=== PATIENT | female | born 1980 | race Caucasian/White ===

== ENCOUNTER 2021-06-23 08:15 | Inpatient (IN) | payer MEDICAID ==
[2021-06-29] MEDS ORDERED: Gabapentin 300 MG Cap PO ONE (06:00)
[2021-06-29] MEDS ORDERED: Acetaminophen 500 MG Tab PO ONE (06:00)
[2021-06-29] MEDS ORDERED: Scopolamine 1.5 MG Transdermal Patch TOP ONE (06:00)
[2021-06-29] MEDS ORDERED: Celecoxib 200 MG Cap PO ONE (06:00)
[2021-06-29 06:31] LABS: CORONAVIRUS COVID-19 NAA NEGATIVE (NEGATIVE)
[2021-06-29] MEDS ORDERED: cefOXitin 2 GM Vial ONE (06:32)
[2021-06-29] MEDS ORDERED: Dextrose 5%-Lactated Ringers 1,000 ML IV SCH (06:45)
[2021-06-29] MEDS ORDERED: Neostigmine Methylsulfate 1 MG/ML 5 ML Syringe IV ONE (06:56)
[2021-06-29] MEDS ORDERED: fentaNYL 250 MCG/5 ML SDV IV ONE ×2 (06:56→07:46)
[2021-06-29] MEDS ORDERED: Dexamethasone 4 MG/ML SDV IV ONE (06:56)
[2021-06-29] MEDS ORDERED: Succinylcholine 200 MG/10 ML MDV IV ONE (06:56)
[2021-06-29] MEDS ORDERED: Propofol 200 MG/20 ML SDV IV ONE (06:56)
[2021-06-29] MEDS ORDERED: Rocuronium 50 MG/5 ML Vial IV ONE (06:56)
[2021-06-29] MEDS ORDERED: Labetalol 20 MG/4 ML Syringe IV ONE (06:56)
[2021-06-29] MEDS ORDERED: Ondansetron 4 MG/2 ML SDV IVPUSH ONE (06:56)
[2021-06-29] MEDS ORDERED: Glycopyrrolate 0.2 MG/ML 2 ML SDV IV ONE (06:56)
[2021-06-29] MEDS ORDERED: Lactated Ringers 1,000 ML IV ONE (06:59)
[2021-06-29] MEDS ORDERED: cefOXitin 2 GM in Sodium Chloride 0.9% 50 ML IV ONE (07:00)
[2021-06-29] MEDS ORDERED: Ketamine 16 MG in Sodium Chloride 0.9% 19.84 ML IV SCH (07:30)
[2021-06-29] MEDS ORDERED: Ketamine 500 MG/5 ML MDV IV SCH (07:30)
[2021-06-29] MEDS ORDERED: hydrOXYzine HCL 100 MG/2 ML SDV IM ONE (08:55)
[2021-06-29 09:26] LABS: HEMOGLOBIN A1C 6.4 % (4.5-6.2)
[2021-06-29] MEDS: HYDROmorphone 1 MG/ML Syringe IV PRN ×2 (09:56→12:26)
[2021-06-29] MEDS ORDERED: Labetalol 20 MG/4 ML Syringe IVPUSH PRN (10:00)
[2021-06-29] MEDS ORDERED: Calcium Gluconate 10% 1 GM/10 ML SDV IVPUSH PRN (10:00)
[2021-06-29] MEDS ORDERED: Metoclopramide 10 MG/2 ML SDV IVPUSH PRN (10:00)
[2021-06-29] MEDS ORDERED: HYDROmorphone 0.5 MG/0.5 ML Syringe IVPUSH PRN (10:00)
[2021-06-29] MEDS ORDERED: traMADol 50 MG Tab PO PRN (10:00)
[2021-06-29] MEDS ORDERED: diphenhydrAMINE 50 MG/ML SDV IVPUSH PRN (10:00)
[2021-06-29] MEDS ORDERED: Cyclobenzaprine 10 MG Tab PO PRN (10:00)
[2021-06-29] MEDS ORDERED: Ondansetron 4 MG/2 ML SDV IVPUSH PRN (10:00)
[2021-06-29] MEDS ORDERED: hydrOXYzine HCL 100 MG/2 ML SDV IM PRN (10:00)
[2021-06-29] MEDS: Pantoprazole 40 MG Vial IVPUSH SCH (10:44)
[2021-06-29] MEDS: oxyCODONE 5 MG Tab PO PRN (11:24)
[2021-06-29] MEDS: cefOXitin 2 GM in Sodium Chloride 0.9% 50 ML IV SCH ×2 (13:53→20:06)
[2021-06-29] MEDS: Acetaminophen 500 MG Tab PO SCH ×2 (13:58→22:13)
[2021-06-29] MEDS: Gabapentin 300 MG Cap PO SCH ×2 (13:58→20:24)
[2021-06-29] MEDS ORDERED: MVI, Adult with Vitamin K 10 ML, Thiamine 200 MG, Zinc/Copper/Manganese/Selenium 1 ML i... IV SCH ×4 (14:00)
--- NOTE | 2021-06-29 15:01 | PCM.EKG ---
#1 Interpretation EKG Date: 06/29/21 Time: 07:09 Rhythm: NSR Rate (Beats/Min): 81 [place]: Normal P-Wave: Present QRS: Normal ST-T: Normal QT: Normal NV/PQ Interval: normal Comparison: NA - No Prior EKG
[2021-06-29] MEDS: Heparin Sodium 5,000 Units/ML Vial SUBCUT SCH (17:59)
[2021-06-29] MEDS: Amitriptyline 25 MG Tab PO SCH (20:24)
[2021-06-29] MEDS: Dextrose 5%-Lactated Ringers 1,000 ML IV SCH (21:11)
[2021-06-30] MEDS: oxyCODONE 5 MG Tab PO PRN (01:34)
[2021-06-30] MEDS: cloNIDine 0.1 MG Tab PO PRN ×2 (01:35→09:36)
[2021-06-30] MEDS: cefOXitin 2 GM in Sodium Chloride 0.9% 50 ML IV SCH ×2 (01:36→08:06)
[2021-06-30] MEDS ORDERED: Iopamidol 612 MG/ML 50 ML SDV PO ONE (01:54)
[2021-06-30] MEDS: Dextrose 5%-Lactated Ringers 1,000 ML IV SCH ×3 (03:34→10:42)
[2021-06-30] MEDS: Heparin Sodium 5,000 Units/ML Vial SUBCUT SCH ×2 (05:59→18:06)
[2021-06-30] MEDS: Acetaminophen 500 MG Tab PO SCH ×3 (05:59→22:54)
[2021-06-30] MEDS ORDERED: Ondansetron 4 MG Tab.DIS PO PRN (06:47)
[2021-06-30] MEDS ORDERED: hydrOXYzine HCl 25 MG Tab PO PRN (06:49)
--- NOTE | 2021-06-30 07:44 | PN ---
DATE OF SERVICE: 06/30/2021 SUBJECTIVE: Laura is postop day 1. Her upper GI was normal. She has been up ambulating several times. Vital signs have been stable. Pain has been controlled. She has received oxycodone, tramadol, Flexeril, and Vistaril 100 mg IM. She states her anxiety was high during the night, which she takes scheduled medications for. Oral intake 1320, urine output 3700, MANUEL drain put out 135 mL of a light red drainage. REVIEW OF SYSTEMS: Remainder of review of systems negative for any pertinent positives or negatives. OBJECTIVE: GENERAL: Laura is a pleasant 41-year-old female. She is alert and orientated. VITAL SIGNS: TPR 96.3, 98, 18, blood pressure 125/67. HEENT: Negative. NECK: Supple. HEART: Regular rate and rhythm. LUNGS: Clear. ABDOMEN: Dressings dry and intact. Abdominal binder is on and MANUEL drain intact. EXTREMITIES: Without peripheral edema. ASSESSMENT: Diagnostic laparoscopy with: 1. Laparoscopic sleeve gastrectomy. 2. Liver biopsy. 3. Repair of paraesophageal diaphragmatic hernia. 4. Excision of mediastinal lipoma. POSTOPERATIVE DIAGNOSES: 1. Morbid obesity. 2. Hepatomegaly. 3. Paraesophageal diaphragmatic hernia. 4. Mediastinal lipoma. Date of procedure: 06/29/2021. Surgeon: Wiliam Shrestha MD PLAN: 1. Decrease IV to 100 mL/hour D5LR. 2. Dressing off, may shower. 3. Discontinue telemetry and continuous pulse ox. 4. Step 2 gastric bypass diet without cereal. 5. Zofran ODT 4 mg q.4 hours sublingual p.r.n. nausea. 6. Atarax 50 mg q.4 hours p.r.n. pain. 7. Communication order written to have 3 med cups at bedside and to drink one every 20 minutes/3 per hour, record at bedside. 8. Communication order written, remainder of energy protocol. 9. Continue use of incentive spirometer. The patient already has been doing it every hour she states. We will evaluate p.r.n. or in a.m. Priscila Oconnell PA-C /[id number]
[2021-06-30] MEDS: Gabapentin 300 MG Cap PO SCH ×3 (08:11→20:05)
[2021-06-30] MEDS: SCOPOLAMINE PATCH CHECK TOP SCH (08:11)
[2021-06-30] MEDS: buPROPion 150 MG Tab.ER PO SCH (08:11)
[2021-06-30] MEDS: Celecoxib 200 MG Cap PO SCH ×2 (08:11→20:05)
--- NOTE | 2021-06-30 10:30 | CR ---
[facility] HISTORY: Postbariatric surgery FINDINGS: Patient swallowed water-soluble contrast. Upright views of the abdomen show no evidence of extravasation or obstruction. There is a surgical drain in the left upper quadrant IMPRESSION: Status post bariatric surgery No extravasation or obstruction seen
[2021-06-30] MEDS: Pantoprazole 40 MG Vial IVPUSH SCH (11:15)
[2021-06-30] MEDS: Pantoprazole 40 MG Delayed-Release Granules 1 Packet PO SCH (12:00)
[2021-06-30] MEDS: Acetaminophen 500 MG Tab PO PRN (14:02)
[2021-06-30] MEDS ORDERED: MVI, Adult with Vitamin K 10 ML, Thiamine 200 MG, Zinc/Copper/Manganese/Selenium 1 ML i... IV SCH ×4 (16:00)
[2021-06-30] MEDS: Amitriptyline 25 MG Tab PO SCH (20:05)
[2021-06-30] MEDS ORDERED: VRAYLAR PO SCH (21:00)
[2021-06-30] MEDS ORDERED: lamoTRIgine 100 MG Tab PO SCH (21:00)
[2021-07-01] MEDS: Dextrose 5%-Lactated Ringers 1,000 ML IV SCH (01:51)
[2021-07-01] MEDS: Acetaminophen 500 MG Tab PO PRN (01:56)
[2021-07-01] MEDS: Acetaminophen 500 MG Tab PO SCH ×2 (05:37→12:54)
[2021-07-01] MEDS: Heparin Sodium 5,000 Units/ML Vial SUBCUT SCH (05:37)
[2021-07-01] MEDS: SCOPOLAMINE PATCH CHECK TOP SCH (08:31)
[2021-07-01] MEDS: Gabapentin 300 MG Cap PO SCH ×2 (08:31→12:54)
[2021-07-01] MEDS: Celecoxib 200 MG Cap PO SCH (08:31)
[2021-07-01] MEDS: buPROPion 150 MG Tab.ER PO SCH (08:32)
[2021-07-01] MEDS ORDERED: Cyanocobalamin (Vitamin B12) 1,000 MCG/ML SDV IM ONE (09:00)
[2021-07-01] MEDS: Pantoprazole 40 MG Delayed-Release Granules 1 Packet PO SCH (11:28)
--- NOTE | 2021-07-01 12:03 | DISCH ---
ADMISSION DIAGNOSES: 1. Morbid obesity, BMI 42.6. 2. Depression. 3. Bipolar disorder. 4. Anxiety. DISCHARGE DIAGNOSES: Diagnostic laparoscopy with: 1. Laparoscopic sleeve gastrectomy. 2. Liver biopsy. 3. Repair of paraesophageal diaphragmatic hernia. 4. Excision of mediastinal lipoma. POSTOPERATIVE DIAGNOSES: 1. Morbid obesity. 2. Hepatomegaly. 3. Paraesophageal diaphragmatic hernia. 4. Mediastinal lipoma. Date of procedure: 06/29/2021. Surgeon: Wiliam Shrestha MD. HISTORY: Edel Jenkins is a 41-year-old female with longstanding history of morbid obesity and increasing comorbidities. After preoperative evaluation and discussion of possible risks and possible complications she wished to proceed with surgical procedure. HOSPITAL COURSE: Laura had her surgery on 06/29/2021. She had no operative complications. On postoperative day #1, her upper GI was normal. She was started on step 2 gastric bypass diet without cereal and pain was managed per energy protocol. On postoperative day #2, she was able to be discharged to home. Oral intake adequate. Vital signs stable. Activity good. She received adequate dietary instruction and B12 1000 mcg IM injection. PHYSICAL EXAMINATION: GENERAL: Laura is a pleasant 41-year-old female. VITAL SIGNS: Height is 5 feet 4 inches, weight is 248 pounds. BMI is 42.6. TPR is 95.8, 77, 16. Blood pressure 135/78. HEENT: Negative. NECK: Supple. HEART: Regular rate and rhythm. LUNGS: Clear. ABDOMEN: Incisions look good. Trocar sites healing well. Sutures intact. MANUEL drain remains to be in but will be removed prior to discharge. Abdominal binder is on. EXTREMITIES: Without peripheral edema. DISPOSITION: Discharged to home. CONDITION: Stable and improving. FOLLOWUP: Followup appointment with Priscila Oconnell PA-C, on 07/08/2021 at 10 a.m. HOME MEDICATIONS: Zofran ODT 4 mg q.4 hours p.r.n. nausea, #3; Celebrex 200 mg b.i.d. p.o., #28; Tylenol 1000 mg q.6 hours scheduled for 2 to 3 days, then may take p.r.n. She is to resume home medication of Elavil 25 mg p.o. bedtime, Wellbutrin XL 450 mg p.o. daily, Catapres 0.2 mg p.o. b.i.d. p.r.n., gabapentin 600 mg p.o. t.i.d., Vraylar 3 mg p.o. daily, Xanax 0.5 mg p.o. b.i.d. p.r.n. DIET: Step 2 gastric bypass diet without cereal until 07/30/2021. She is to drink 8 to 10 glasses of water a day and get 65 g protein. ACTIVITY: No lifting greater than 10 pounds for 2 weeks. OTHER ACTIVITY: Walk 6 times daily inside your home. Driving, do not drive for 1 week. Shower/bathing: May shower. Keep operative site clean and dry. Wear abdominal binder for 2 weeks and then as tolerated. Notify provider if any fever, increased pain, swelling, redness, drainage, nausea, vomiting. SPECIAL INSTRUCTIONS: 1. Use incentive spirometer 10 times every hour while awake for 1 week. 2. Walk 2 to 3 times every hour that you are in the car to prevent any blood clots. /[id number]
--- NOTE | 2021-07-01 14:48 | OR ---
DATE OF PROCEDURE: 06/29/2021 SURGEON: Wiliam Shrestha MD PREOPERATIVE DIAGNOSIS: Morbid obesity. POSTOPERATIVE DIAGNOSES: 1. Morbid obesity. 2. Marked hepatomegaly. 3. Paraesophageal diaphragmatic hernia. 4. Mediastinal lipoma. OPERATIVE PROCEDURES: Diagnostic laparoscopy with: 1. Laparoscopic sleeve gastrectomy (79564). 2. Todd-Cut needle liver biopsy (05543). 3. Repair of paraesophageal diaphragmatic hernia (65763). 4. Excision of mediastinal lipoma (54900). ANESTHESIA: General. KITCHEN HELPER: Priscila Oconnell PA-C. INDICATIONS FOR PROCEDURE: This is a 41-year-old female presenting with longstanding morbid obesity and increasingly significant comorbidities. After preoperative evaluation and discussion, she wished to proceed with a sleeve gastrectomy. Potential risks of procedure including bleeding, infection, leaks from the staple line as well as possibility of cardiopulmonary, septic, or hemorrhagic complications leading to were discussed, and the patient wishes to proceed. DETAILS OF PROCEDURE: After general endotracheal anesthesia was induced, she was placed in a lithotomy position and the abdomen prepped and draped. 15 cm inferior and 5 cm left of the xiphoid process, a transverse incision was made and peritoneal cavity entered under direct vision with an Optiview trocar, inflated to 15 mmHg pressure with CO2. Laparoscope was reinserted. No underlying trocar insertion site injuries were seen. Following this, 5 additional trocars were placed across the upper and mid abdomen and bilateral transversus abdominis plane blocks were then placed and the liver examined. The patient was noted to have marked hepatomegaly with liver being quite fatty infiltrated and moderately enlarged. Todd-Cut biopsies were obtained from left lobe of liver. Minimal bleeding from the biopsy site was controlled with electrocautery. The liver was then retracted anteriorly. The patient was noted to have a moderate-sized paraesophageal hernia. This was reduced and dissected downward. During the course of the crural dissection, a mediastinal lipoma was encountered and this was excised to allow more satisfactory crural closure which was then accomplished with anterior 0 Ethibond sutures reinforced with PTFE pledgets. The greater curvature of the stomach was then divided away from the omentum with Harmonic scalpel. Dissection initially progressed proximally across the short gastric including the highest and posterior short gastric vessels and the fundus of the stomach was skeletonized away from the left lauro of the diaphragm. The dissection then continued down further to a point 2 cm proximal to the pylorus. The initial line of resection was then mapped out across the antrum and to the area underlying the incisura angularis so as to avoid overtightening of that area. First 3 firings of the staple line were done with QUE black loads. A 32-Croatian suction tube was then placed orally per Anesthesia and positioned along the lesser curvature of the stomach and placed on suction. Remainder of the staple lines were then accomplished with reinforced black and in one case reinforced purple QUE loads using the 32-Croat[place] tube as a template. The stomach was then passed off to the side, staple lines were inspected. The staple lines were then reinforced with some fibrin sealant focusing on the area of the esophagogastric junction. Omentum was then placed up against that area as well. Leak test was accomplished with injection of air into the stomach until it was tight and no leaks or bleeding were seen. The gastric specimen was then retrieved through the left lateral trocar site, and at that point, no further problems noted. A single drain was placed through the left lateral trocar site and positioned adjacent to the area of the esophagogastric junction and from there up into the splenic fossa. The trocars were then sequentially removed and the peritoneal cavity deflated. Incisions were closed with 4-0 Vicryl skin stitch which was used for drain as well. The patient was taken to the recovery room in satisfactory condition. Physician shop assistant, Priscila Oconnell, played an essential role in assisting in this case, helping to position the patient, retract structures as needed as well as suturing and cutting sutures when indicated. Her presence improved patient safety and decreased the operative time. Wiliam Shrestha MD Job #: [id number]
== END 2021-07-01 13:30 | disposition home or self-care (01) | DRG 621 ==
LOC: JP.SDSSCHI 06-29 05:24 → JP.SDS 06-29 05:24 → EDSTATUS 06-29 07:00 → JP.MS 06-29 09:00
PROVIDERS: ADMIT Surgery; ATTEND Surgery
PROC: 0DB64Z3 Excision of Stomach, Percutaneous Endoscopic Approach, Vertical (ICD-10-PCS; principal; 2021-06-29)
PROC: 0FB24ZX Excision of Left Lobe Liver, Percutaneous Endoscopic Approach, Diagnostic (ICD-10-PCS; 2021-06-29)
PROC: 0BQT4ZZ Repair Diaphragm, Percutaneous Endoscopic Approach (ICD-10-PCS; 2021-06-29)
PROC: 0JB63ZZ Excision of Chest Subcutaneous Tissue and Fascia, Percutaneous Approach (ICD-10-PCS; 2021-06-29)
DX: E66.01 Morbid (severe) obesity due to excess calories (principal); Z68.41 Body mass index [BMI] 40.0-44.9, adult; F31.9 Bipolar disorder, unspecified; F41.9 Anxiety disorder, unspecified; F60.3 Borderline personality disorder; F43.10 Post-traumatic stress disorder, unspecified; Z87.891 Personal history of nicotine dependence; Z87.442 Personal history of urinary calculi; Z90.49 Acquired absence of other specified parts of digestive tract; Z88.0 Allergy status to penicillin; Z20.822 Contact with and (suspected) exposure to COVID-19
CPT/HCPCS: 0241U; 36415; 74240; 74240-26; 80053; 81025; 83036; 83735; 84100; 85025; 86850; 86900; 86901; 93005; 94762; A9270-GY; C9113; J0171; J0330; J0694; J1100; J1170; J1644; J2405; J2704; J2710; J2795; J3010; J3410; J3411; J3420; J3490; J7120; J7121; Q9967